=== PATIENT | female | born 1995 | race Caucasian/White ===

== ENCOUNTER 2021-08-20 08:45 | Emergency (ER) | payer OTHER, SELFPAY ==
--- NOTE | 2021-08-20 08:49 | ED.URI ---
HPI - URI/Sore Throat General Chief Complaint: Upper Respiratory Infection Stated Complaint: fever/body aches/sore throat Time Seen by Provider: 08/20/21 08:47 Source: patient Mode of arrival: ambulatory Limitations: no limitations History of Present Illness HPI Narrative: Ms. Ryan is a 26-year-old female patient presenting to the clinic today with complaints of fever, cough body aches, and sore throat x4 days. She reports she is unaware that how high her fever has been however she is felt feverish. Was diagnosed with COVID 2 weeks ago. She denies any known exposure to anybody with flu or strep. History of T&A and asthma. She states that she has very mild shortness of breath with exertion. Is having a productive cough with green phlegm. Patient is requesting an albuterol inhaler refill while in the clinic today. MD elicited complaint: fever, cough, sore throat, nasal congestion and other (Body aches) Related Data Home Medications Medication Instructions Recorded Confirmed albuterol 90 mcg INHALATION PRN PRN 08/20/21 08/20/21 albuterol sulfate 0.63 mg INHALATION Q4H PRN 08/20/21 08/20/21 etonogestrel-ethinyl estradiol 1 vag ring VAGINAL ONCE 08/20/21 08/20/21 [NuvaRing] galcanezumab-gnlm [Emgality 120 mg SUBCUT ONCE 08/20/21 08/20/21 Syringe] hydroxyzine pamoate [Vistaril] 25 mg PO TID PRN 08/20/21 08/20/21 propranolol 10 mg PO Q12H 08/20/21 08/20/21 sertraline [Zoloft] 25 mg PO DAILY 08/20/21 08/20/21 trazodone 50 mg PO HS 08/20/21 08/20/21 Allergies Allergy/AdvReac Type Severity Reaction Status Date / Time dihydroergotamine AdvReac Hypertensio Verified 08/20/21 09:11 n Review of Systems Review of Systems: Pertinent positives per HPI. Patient denies any rash, headache, visual changes, dizziness,shortness of breath, chest pain, palpitations, nausea, vomiting, diarrhea, constipation, abdominal pain, or any urinary issues. PMFSH Comments At the time of my signature, I reviewed and agree with the nursing past medical, surgical, social, and family history. There is no relevant family history pertinent to the patient complaint. Exam Narrative: General: Well-developed, morbidly obese, in no apparent distress Head: Normocephalic, atraumatic Eyes: Pupils equally round and reactive to light bilaterally, EOM intact, sclera and conjunctive clear, no discharge, lids normal Ears: TMs intact and clear, ear canals clear, no drainage, grossly hearing normal. Nose: Nares patent, clear nasal discharge, moderate inflammation, no sinus tenderness. Mouth: Oral pharynx without lesions or masses, good dentition, MMM. Oropharynx red, tonsils and adenoids surgically absent. Neck: Supple, trachea midline, no enlargement of anterior or posterior cervical nodes, no thyroid masses or goiter palpable. Cardio: Regular rate and rhythm, s1 and s2 normal, no murmur appreciated. Resp: Clear to auscultation bilaterally, no rhonchi, rales, wheezing or rubs Course Course Emergency Course: Portions of this record may have been created with voice recognition software. Level of Care: Express Care Visit Vital Signs Vital signs: Vital signs reviewed MDM - URI/Sore Throat MDM Narrative Medical decision making narrative: At the time of assessment patient is resting comfortably on the exam table. She reports that she has had fever, productive cough with green phlegm, sore throat, and nasal congestion. Was diagnosed with COVID 2 weeks ago. Lung sounds are clear. Strep screen and influenza testing completed in the clinic and strep was positive. We will treat patient for strep pharyngitis and prescription for amoxicillin was sent in. Patient also requesting a refill on her albuterol inhaler she has a history of asthma. This was also sent to the pharmacy. Discharge instructions were discussed with patient she voiced understanding. Differential Diagnosis Differential diagnosis: Likely upper respiratory infection, croup, otitis media, sinusi
[2021-08-20 08:57] VITALS: BP 140/87; PULSE 113; RESP 16; TEMP 37.3; O2SAT 99
== END 2021-08-20 09:27 | disposition home or self-care (01) ==
PROVIDERS: Emergency Provider Nurse Practitioner Family
DX: J02.0 Streptococcal pharyngitis (principal)
CPT/HCPCS: 87804; 87880; 99203; G0463